=== PATIENT | male | born 1945 | race Caucasian/White ===

== ENCOUNTER 2016-03-15 19:49 | Emergency (ER) | payer SELFPAY ==
[~2016-03-15] VITALS: Ht 165.1 cm; Wt 78.9 kg
[2016-03-15] MEDS ORDERED: CIPROFLOXACIN HCL 250 MG TABLET PO ONE (20:30)
[2016-03-15] MEDS ORDERED: CIPROFLOXACIN HCL 500 MG TABLET ONE (20:32)
[2016-03-15 21:16] LABS: KETONES,URINE 1+ (NEGATIVE); LEUKOCYTE ESTERASE ,URINE NEGATIVE (NEGATIVE); PH,URINE 6.5 (5.0-8.0)
[2016-03-15 21:21] LABS: ADD UA MICROSCOPIC YES
[2016-03-15 21:42] LABS: ADD URINE CULTURE YES; RBC,URINE TOO NUMEROUS TO COUN /HPF (0-2); WBC,URINE NONE SEEN /HPF (0-3)
== END 2016-03-15 20:42 | disposition home or self-care (01) ==
LOC: ER 19:53
DX: R31.9 Hematuria, unspecified (principal); N39.0 Urinary tract infection, site not specified; I10 Essential (primary) hypertension
CPT/HCPCS: 81001; 87086; 99284; A4606; 81000-TC